=== PATIENT | male | born 1990 | race Caucasian/White ===

== ENCOUNTER 2016-11-10 15:42 | Emergency (ER) | payer OTHER ==
[~2016-11-10] VITALS: Ht 182.9 cm; Wt 78.0 kg
[2016-11-10 15:48] VITALS: BP 130/74; PULSE 82; RESP 18; TEMP 98.5
[2016-11-10] MEDS ORDERED: LEXA20TA PO (15:57)
[2016-11-10] MEDS ORDERED: SERO50TA PO (15:57)
[2016-11-10] MEDS ORDERED: CLON1 PO (15:57)
[2016-11-10] MEDS ORDERED: ELAVIL (15:57)
[2016-11-10] MEDS ORDERED: PRAZ2CAP PO (15:57)
[2016-11-10] MEDS ORDERED: CARAFATE (15:57)
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
[2016-11-10 16:11] VITALS: O2SAT 97
[2016-11-10] MEDS ORDERED: SUCRALFATE 1 GM/10 ML CUP PO ONE (16:15)
[2016-11-10] MEDS ORDERED: PANTOPRAZOLE SODIUM 40 MG VIAL IV PUSH ONE (16:15)
[2016-11-10] MEDS ORDERED: SODIUM CHLORIDE 0.9% FLUSH 5 ML FLUSH IVF PRN (16:15)
[2016-11-10] MEDS ORDERED: LIDOCAINE VISCOUS 2% SOLN 15 ML UDC PO ONE (16:30)
[2016-11-10] MEDS ORDERED: ALUMINUM/MAGNESIUM/SIMETH 30 ML CUP PO ONE (16:30)
[2016-11-10 16:38] LABS: AUTOMATED NEUTROPHIL # 4.2 TH/MM3 (1.8-7.7); BASOPHIL % 0.2 % (0.0-2.0); EOSINOPHIL # 0.1 TH/MM3 (0-0.4); HEMATOCRIT 40.4 % (39.0-51.0); HEMO FLAGS DIFF FINAL; LYMPH % 30.1 % (9.0-44.0); MEAN CELL VOLUME 89.9 FL (80.0-100.0); MEAN CORPUSCULAR HEMOGLOBIN 29.9 PG (27.0-34.0); MEAN CORPUSCULAR HGB CONC 33.3 % (32.0-36.0); MONO % 6.7 % (0.0-8.0); PLATELET COUNT 186 TH/MM3 (150-450); WHITE BLOOD COUNT 6.8 TH/MM3 (4.0-11.0)
[2016-11-10 16:56] VITALS: BP 130/74; PULSE 79; RESP 18; O2SAT 98
[2016-11-10] MEDS ORDERED: ONDANSETRON HCL 4 MG/2 ML VIAL IV PUSH ONE (17:00)
[2016-11-10 17:29] LABS: ALKALINE PHOSPHATASE 81 U/L (45-117); ALT (GPT) 17 U/L (12-78); ANION GAP 7 MEQ/L (5-15); AST (GOT) 20 U/L (15-37); BICARBONATE 25.8 MEQ/L (21.0-32.0); BLOOD UREA NITROGEN 9 MG/DL (7-18); CHLORIDE 110 MEQ/L (98-107); GLOMERULAR FILTRATION RATE 91 ML/MIN (>89); SODIUM (NA) 143 MEQ/L (136-145); TOTAL BILIRUBIN ADULT 0.6 MG/DL (0.2-1.0)
[2016-11-10 17:30] LABS: POTASSIUM 4.5 MEQ/L (3.5-5.1)
[2016-11-10] MEDS ORDERED: PROT40TA PO (17:33)
--- NOTE | 2016-11-10 17:42 | PD ---
Data Data Last Documented VS Vital Signs Date Time Temp Pulse Resp B/P Pulse Ox O2 Delivery O2 Flow Rate FiO2 11/10/16 16:56 79 18 130/74 98 Room Air 11/10/16 15:48 98.5 Orders Complete Blood Count With Diff (11/10/16 16:05) Comprehensive Metabolic Panel (11/10/16 16:05) Lipase (11/10/16 16:05) Ecg Monitoring (11/10/16 16:05) Iv Access Insert/Monitor (11/10/16 16:05) Oximetry (11/10/16 16:05) Sodium Chloride 0.9% Flush (Ns Flush) (11/10/16 16:15) Pantoprazole Inj (Protonix Inj) (11/10/16 16:15) Sucralfate Liq (Carafate Liq) (11/10/16 16:15) Al-Mag Hy-Si 40-40-4 Mg/Ml Liq (Mag-Al P (11/10/16 16:30) Lidocaine 2% Viscous (Xylocaine 2% Visco (11/10/16 16:30) Ondansetron Inj (Zofran Inj) (11/10/16 17:00) Morphine Inj (Morphine Inj) (11/10/16 17:45) Labs Laboratory Tests Test 11/10/16 16:10 White Blood Count 6.8 TH/MM3 Red Blood Count 4.50 MIL/MM3 Hemoglobin 13.4 GM/DL Hematocrit 40.4 % Mean Corpuscular Volume 89.9 FL Mean Corpuscular Hemoglobin 29.9 PG Mean Corpuscular Hemoglobin 33.3 % Concent Red Cell Distribution Width 15.0 % Platelet Count 186 TH/MM3 Mean Platelet Volume 10.3 FL Neutrophils (%) (Auto) 62.0 % Lymphocytes (%) (Auto) 30.1 % Monocytes (%) (Auto) 6.7 % Eosinophils (%) (Auto) 1.0 % Basophils (%) (Auto) 0.2 % Neutrophils # (Auto) 4.2 TH/MM3 Lymphocytes # (Auto) 2.0 TH/MM3 Monocytes # (Auto) 0.5 TH/MM3 Eosinophils # (Auto) 0.1 TH/MM3 Basophils # (Auto) 0.0 TH/MM3 CBC Comment DIFF FINAL Differential Comment Sodium Level 143 MEQ/L Potassium Level 4.5 MEQ/L Chloride Level 110 MEQ/L Carbon Dioxide Level 25.8 MEQ/L Anion Gap 7 MEQ/L Blood Urea Nitrogen 9 MG/DL Creatinine 0.99 MG/DL Estimat Glomerular Filtration 91 ML/MIN Rate Random Glucose 70 MG/DL Calcium Level 8.8 MG/DL Total Bilirubin 0.6 MG/DL Aspartate Amino Transf 20 U/L (AST/SGOT) Alanine Aminotransferase 17 U/L (ALT/SGPT) Alkaline Phosphatase 81 U/L Total Protein 6.8 GM/DL Albumin 4.1 GM/DL Lipase 106 U/L [facility] [place] Supervised Visit with CANDELARIA: Yes Narrative Course The history, exam, and medical decision-making in the associated mid-level provider note were completed with my assistance. I reviewed and agree with the findings presented. I attest that I had a [id number] encounter with the patient on the same day, and personally performed and documented my assessment and findings in the medical record. *My assessment and Findings: 26-year-old man, receiving high-dose NSAIDs for opiate detox symptoms, now with gastritis. He's had some blood in his stool. Refusing rectal exam. Labs are normal. BUNs normal. Recommend PPIs, antiemetics. Outpatient follow-up. Diagnosis Primary Impression: Gastritis Qualified Code: K29.00 - Other acute gastritis, presence of bleeding unspecified Patient Instructions: General Instructions, Gastritis (ED) Departure Forms: Tests/Procedures Additional Instruction: Please return to emergency department if your symptoms return or worsen. Follow up with your primary care provider. Take medications as prescribed. Avoid medications call NSAIDs (ibuprofen, Aleve, Toradol) as they can make your stomach condition worse. Scripts Pantoprazole (Protonix)40 Mg Tab40 Mg PO DAILY #30 TAB Ref 0 Prov:Roberto Savage MD 11/10/16 Disposition: 01 DISCHARGE HOME Condition: Stable Roberto Savage MD Nov 10, 2016 17:42
[2016-11-10] MEDS ORDERED: MORPHINE SULFATE 4 MG/ML INJ IM ONE (17:45)
== END 2016-11-10 18:09 | disposition home or self-care (01) ==
LOC: NEPC 15:42
DX: K29.00 Acute gastritis without bleeding (principal)
CPT/HCPCS: 80053; 83690; 85025; 96372; 96374; 96375; 99284; C9113; J2270; J2405

== ENCOUNTER 2016-12-31 00:06 | Emergency (ER) | payer OTHER ==
[~2016-12-31] VITALS: Ht 182.9 cm; Wt 90.0 kg
[~2016-12-31 00:06] MED LIST: CARAFATE; CLON1 PO; ELAVIL; LEXA20TA PO; PRAZ2CAP PO; PROT40TA PO; SERO50TA PO
[2016-12-31 00:09] VITALS: BP 120/72; PULSE 74; RESP 18; TEMP 98.7; O2SAT 98
[2016-12-31] MEDS ORDERED: SODIUM CHLOR 0.9% 1000 ML INJ 1,000 ML IV SCH (00:16)
[2016-12-31] MEDS ORDERED: PRIL20CA9 PO (00:19)
[2016-12-31] MEDS ORDERED: CARA1TAB6 PO (00:19)
[2016-12-31] MEDS ORDERED: BUPR4MIS SL (00:19)
[2016-12-31] MEDS ORDERED: AMIT1TAB79 PO (00:19)
[2016-12-31 00:21] VITALS: RESP 18; O2SAT 99
[2016-12-31] MEDS ORDERED: SODIUM CHLORIDE 0.9% FLUSH 10 ML FLUSH IV FLUSH PRN (00:30)
[2016-12-31] MEDS ORDERED: KETOROLAC TROMETHAMINE 30 MG/ML (IVP) VIAL IVP ONE (00:30)
[2016-12-31] MEDS ORDERED: ONDANSETRON HCL 4 MG/2 ML VIAL IVP ONE (00:30)
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
[2016-12-31 00:35] LABS: WHITE BLOOD COUNT 7.8 TH/MM3 (4.0-11.0)
[2016-12-31] MEDS ORDERED: DIATRIZOATE MEGLUM/DIATRIZOATE SOD 9 ML CUP ONE (00:35)
[2016-12-31 00:36] LABS: AUTOMATED NEUTROPHIL # 3.8 TH/MM3 (1.8-7.7); BASOPHIL % 0.4 % (0.0-2.0); EOSINOPHIL # 0.3 TH/MM3 (0-0.4); EOSINOPHIL % 3.3 % (0.0-4.0); HEMATOCRIT 42.6 % (39.0-51.0); HEMO FLAGS DIFF FINAL; LYMPH % 40.5 % (9.0-44.0); LYMPHOCYTE # 3.2 TH/MM3 (1.0-4.8); MEAN CELL VOLUME 87.9 FL (80.0-100.0); MEAN CORPUSCULAR HEMOGLOBIN 30.7 PG (27.0-34.0); MONO % 7.8 % (0.0-8.0); PLATELET COUNT 196 TH/MM3 (150-450); RED BLOOD COUNT 4.84 MIL/MM3 (4.50-5.90); RED CELL DISTRIBUTION WIDTH 14.3 % (11.6-17.2)
[2016-12-31] MEDS ORDERED: CLON1 PO (00:41)
[2016-12-31] MEDS ORDERED: CLON.5 PO (00:41)
[2016-12-31 00:55] LABS: APTT (PATIENT) 31.3 SEC (24.3-30.1); PROTHROMBIN TIME - PATIENT 11.4 SEC (9.8-11.6)
[2016-12-31] MEDS ORDERED: LORazepam 2 MG/ML VIAL IV PUSH ONE (01:00)
[2016-12-31 01:01] LABS: ALT (GPT) 43 U/L (12-78); ANION GAP 8 MEQ/L (5-15); AST (GOT) 24 U/L (15-37); BLOOD UREA NITROGEN 7 MG/DL (7-18); CHLORIDE 107 MEQ/L (98-107); GLOMERULAR FILTRATION RATE 103 ML/MIN (>89); POTASSIUM 3.7 MEQ/L (3.5-5.1); SODIUM (NA) 141 MEQ/L (136-145)
[2016-12-31 01:03] LABS: ALKALINE PHOSPHATASE 74 U/L (45-117); TOTAL BILIRUBIN ADULT 0.5 MG/DL (0.2-1.0)
[2016-12-31 02:12] LABS: BLOOD, URINE NEG (NEG); GLUCOSE,URINE NEG (NEG); KETONE, URINE NEG (NEG); NITRITE,URINE NEG (NEG); URINE COLOR LIGHT-YELLOW (YELLW/STRAW)
[2016-12-31 02:16] LABS: COMMENT (UR) CULT NOT INDICATED; CULTURE IF INDICATED CULT NOT INDICATED
[2016-12-31] MEDS ORDERED: IOHEXOL 350 MG/ML 10 ML VIAL (for RAD DIAG) IV ONE (03:13)
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
[2016-12-31 04:12] VITALS: BP 129/67; PULSE 75; RESP 18; O2SAT 96
== END 2016-12-31 05:06 | disposition home or self-care (01) ==
LOC: NEPC 00:06
DX: R10.32 Left lower quadrant pain (principal); F17.210 Nicotine dependence, cigarettes, uncomplicated
CPT/HCPCS: 74177; 80053; 81001; 83605; 83690; 85025; 85610; 85730; 96361; 96374; 96375; 99284; J1885; J2060; J2405; J7030; Q9963; Q9967

== ENCOUNTER 2017-01-08 20:12 | Emergency (ER) | payer OTHER ==
[~2017-01-08] VITALS: Ht 182.9 cm; Wt 88.0 kg
[~2017-01-08 20:12] MED LIST changes: +AMIT1TAB79 PO; +BUPR4MIS SL; +CARA1TAB6 PO; -CARAFATE; +CLON.5 PO; -ELAVIL; +PRIL20CA9 PO; -PROT40TA PO
[2017-01-08 20:13] VITALS: BP 136/85; PULSE 74; RESP 14; TEMP 98.8; O2SAT 99
--- NOTE | 2017-01-08 20:50 | PD ---
Physical Exam Date Seen by Provider: Jan 08, 2017 Time Seen by Provider: 20:49 Narrative 26 yo male here for medical clearance. Here to get a UA to get screened for tox screen to validate his medications for his living arrangements. No other complaints. Vitals sign stable. Patient awaiting bed placement. Data Data Last Documented VS Vital Signs Date Time Temp Pulse Resp B/P Pulse Ox O2 Delivery O2 Flow Rate FiO2 01/08/17 20:13 98.8 74 14 136/85 99 Room Air [facility] Medical Record Reviewed: Yes Supervised Visit with CANDELARIA: Ricky Nelson Jan 08, 2017 20:50
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
== END 2017-01-08 21:19 | disposition left against medical advice (07) ==
LOC: NEPK 20:12
DX: Z04.8 Encounter for examination and observation for other specified reasons (principal); Z92.29 Personal history of other drug therapy; R10.9 Unspecified abdominal pain; F17.210 Nicotine dependence, cigarettes, uncomplicated
CPT/HCPCS: 99281

== ENCOUNTER 2017-01-31 22:41 | Emergency (ER) | payer OTHER ==
[2017-01-31 22:45] VITALS: BP 142/87; PULSE 87; RESP 16; TEMP 99.4; O2SAT 98
[2017-02-01] MEDS ORDERED: BUPR4MIS SL (01:23)
[2017-02-01] MEDS ORDERED: SERO100T PO (01:23)
[2017-02-01] MEDS ORDERED: REME30TA PO (01:23)
[2017-02-01] MEDS ORDERED: SUBO8MIS SL (01:23)
[2017-02-01] MEDS ORDERED: ANUS25SU RECTAL (01:30)
[2017-02-01 01:33] VITALS: BP 117/56; PULSE 83; RESP 16; O2SAT 95
[2017-02-01] MEDS ORDERED: ONDANSETRON HCL 4 MG/2 ML VIAL IV PUSH ONE (01:45)
[2017-02-01] MEDS ORDERED: SODIUM CHLOR 0.9% 1000 ML INJ 1,000 ML IV ONE (01:45)
[2017-02-01 01:50] LABS: AUTOMATED NEUTROPHIL # 3.9 TH/MM3 (1.8-7.7); BASOPHIL % 0.3 % (0.0-2.0); EOSINOPHIL # 0.4 TH/MM3 (0-0.4); EOSINOPHIL % 4.7 % (0.0-4.0); HEMATOCRIT 42.5 % (39.0-51.0); HEMO FLAGS DIFF FINAL; LYMPH % 36.8 % (9.0-44.0); MEAN CELL VOLUME 89.4 FL (80.0-100.0); MEAN CORPUSCULAR HEMOGLOBIN 30.2 PG (27.0-34.0); MEAN CORPUSCULAR HGB CONC 33.7 % (32.0-36.0); NEUT % 48.2 % (16.0-70.0); PLATELET COUNT 183 TH/MM3 (150-450); RED BLOOD COUNT 4.75 MIL/MM3 (4.50-5.90); RED CELL DISTRIBUTION WIDTH 13.3 % (11.6-17.2); WHITE BLOOD COUNT 8.1 TH/MM3 (4.0-11.0)
[2017-02-01 01:58] LABS: ALKALINE PHOSPHATASE 73 U/L (45-117); TOTAL BILIRUBIN ADULT 0.5 MG/DL (0.2-1.0)
[2017-02-01] MEDS ORDERED: PANTOPRAZOLE SODIUM 40 MG VIAL IV PUSH ONE (02:00)
[2017-02-01 02:02] LABS: ALT (GPT) 59 U/L (12-78); ANION GAP 9 MEQ/L (5-15); AST (GOT) 48 U/L (15-37); BICARBONATE 25.5 MEQ/L (21.0-32.0); BLOOD UREA NITROGEN 7 MG/DL (7-18); CHLORIDE 108 MEQ/L (98-107); GLOMERULAR FILTRATION RATE 105 ML/MIN (>89); POTASSIUM 4.1 MEQ/L (3.5-5.1); SODIUM (NA) 142 MEQ/L (136-145)
[2017-02-01] MEDS ORDERED: PROT40TA PO (02:51)
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
== END 2017-02-01 03:01 | disposition home or self-care (01) ==
LOC: NEPC 22:41
DX: R10.9 Unspecified abdominal pain (principal); K62.5 Hemorrhage of anus and rectum; R11.2 Nausea with vomiting, unspecified; F17.200 Nicotine dependence, unspecified, uncomplicated; Z86.59 Personal history of other mental and behavioral disorders; Z87.19 Personal history of other diseases of the digestive system
CPT/HCPCS: 80053; 83690; 85025; 96361; 96374; 96375; 99284; C9113; J2405; J7030

== ENCOUNTER 2017-02-19 21:36 | Emergency (ER) | payer OTHER ==
[~2017-02-19] VITALS: Ht 182.9 cm; Wt 108.7 kg
[~2017-02-19 21:36] MED LIST changes: -AMIT1TAB79 PO; +ANUS25SU RECTAL; -CARA1TAB6 PO; -CLON.5 PO; +PROT40TA PO; +REME30TA PO; +SERO100T PO; +SUBO8MIS SL
[2017-02-19 21:41] VITALS: BP 128/81; PULSE 86; RESP 18; TEMP 98.1; O2SAT 97
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
[2017-02-19] MEDS ORDERED: SODIUM CHLOR 0.9% 1000 ML INJ 1,000 ML IV ONE (22:15)
[2017-02-19] MEDS ORDERED: ONDANSETRON HCL 4 MG/2 ML VIAL IVP ONE (22:15)
[2017-02-19] MEDS ORDERED: ONDANSETRON HCL 4 MG/2 ML VIAL IV PUSH ONE (22:15)
[2017-02-19] MEDS ORDERED: SODIUM CHLORIDE 0.9% FLUSH 10 ML FLUSH IV FLUSH PRN (22:15)
[2017-02-19 22:38] LABS: AUTOMATED NEUTROPHIL # 2.4 TH/MM3 (1.8-7.7); BASOPHIL % 0.3 % (0.0-2.0); EOSINOPHIL # 0.3 TH/MM3 (0-0.4); EOSINOPHIL % 5.5 % (0.0-4.0); HEMO FLAGS DIFF FINAL; LYMPH % 43.5 % (9.0-44.0); LYMPHOCYTE # 2.5 TH/MM3 (1.0-4.8); MEAN CELL VOLUME 88.7 FL (80.0-100.0); MEAN CORPUSCULAR HEMOGLOBIN 30.6 PG (27.0-34.0); MEAN CORPUSCULAR HGB CONC 34.5 % (32.0-36.0); MONO % 8.8 % (0.0-8.0); NEUT % 41.9 % (16.0-70.0); PLATELET COUNT 213 TH/MM3 (150-450); RED BLOOD COUNT 4.52 MIL/MM3 (4.50-5.90); RED CELL DISTRIBUTION WIDTH 12.2 % (11.6-17.2); WHITE BLOOD COUNT 5.7 TH/MM3 (4.0-11.0)
[2017-02-19 22:39] LABS: BLOOD, URINE NEG (NEG); GLUCOSE,URINE NEG (NEG); KETONE, URINE NEG (NEG); NITRITE,URINE NEG (NEG)
[2017-02-19 22:46] LABS: CHLORIDE 107 MEQ/L (98-107); POTASSIUM 3.6 MEQ/L (3.5-5.1); SODIUM (NA) 142 MEQ/L (136-145)
[2017-02-19 22:47] LABS: COMMENT (UR) CULT NOT INDICATED; CULTURE IF INDICATED CULT NOT INDICATED; RBC, URINE 0-2 /hpf (0-3); SQUAMOUS EPITHELIAL CELL URINE 0-5 /hpf (0-5); URINE COLOR YELLOW (YELLW/STRAW); WBC, URINE 0-2 /hpf (0-5)
[2017-02-19 22:50] LABS: ANION GAP 9 MEQ/L (5-15); BICARBONATE 26.3 MEQ/L (21.0-32.0); BLOOD UREA NITROGEN 8 MG/DL (7-18)
[2017-02-19 22:53] LABS: ALT (GPT) 71 U/L (12-78); AST (GOT) 40 U/L (15-37); GLOMERULAR FILTRATION RATE 95 ML/MIN (>89)
[2017-02-19 22:55] LABS: APTT (PATIENT) 27.8 SEC (24.3-30.1); INTERNATIONAL NORMALIZED RATIO 0.9 RATIO; PROTHROMBIN TIME - PATIENT 10.1 SEC (9.8-11.6); TOTAL BILIRUBIN ADULT 0.4 MG/DL (0.2-1.0)
[2017-02-19 22:56] LABS: ALKALINE PHOSPHATASE 65 U/L (45-117)
[2017-02-19] MEDS ORDERED: MORPHINE SULFATE 4 MG/ML INJ IV PUSH ONE (23:00)
--- NOTE | 2017-02-20 00:43 | RADHPO ---
EXAM DATE/TIME: 02/19/2017 23:46 [facility] COMPARISON: No previous studies available for comparison. INDICATIONS : Right upper quadrant pain. MEDICAL HISTORY : Renal calculi. Gastritis. PTSD. Depression. Anxiety. Substance use. SURGICAL HISTORY : Appendectomy. Colon repair. Right wrist surgery. Left arm incision and drainage from cellulitis. ENCOUNTER: Initial ACUITY: 1 day PAIN SCORE: 7/10 LOCATION: Right upper quadrant MEASUREMENTS: LIVER: 18.6 cm length COMMON DUCT: 4 mm RIGHT KIDNEY: 11.2 x 4.8 x 4.4 cm FINDINGS: LIVER: Normal echotexture without focal lesion or ductal dilatation. The liver is mildly prominent. COMMON DUCT: No intraluminal mass or stone visualized. GALLBLADDER: Contains no stones, demonstrates no wall thickening or pericholecystic fluid. PANCREAS: The visualized portions are within normal limits. RIGHT KIDNEY: No evidence of hydronephrosis, stone, or mass. CONCLUSION: 1. Mildly prominent liver with no focal lesion. 2. Unremarkable gallbladder with no evidence of cholelithiasis. Joni Pena MD on February 20, 2017 at 0:40 Board Certified Radiologist. This report was verified electronically.
--- NOTE | 2017-02-20 00:45 | PD ---
Data Data Last Documented VS Vital Signs Date Time Temp Pulse Resp B/P Pulse Ox O2 Delivery O2 Flow Rate FiO2 02/20/17 01:31 82 16 147/77 99 02/19/17 21:41 98.1 Orders Complete Blood Count With Diff (02/19/17 22:02) Comprehensive Metabolic Panel (02/19/17 22:02) Lipase (02/19/17 22:02) Prothrombin Time / Inr (Pt) (02/19/17 22:02) Act Partial Throm Time (Ptt) (02/19/17 22:02) Urinalysis - C+S If Indicated (02/19/17 22:02) Us Abdomen Gallbladder (02/19/17 ) Iv Access Insert/Monitor (02/19/17 22:02) Ecg Monitoring (02/19/17 22:02) Oximetry (02/19/17 22:02) Ondansetron Inj (Zofran Inj) (02/19/17 22:15) Sodium Chloride 0.9% Flush (Ns Flush) (02/19/17 22:15) Ondansetron Inj (Zofran Inj) (02/19/17 22:15) Sodium Chlor 0.9% 1000 Ml Inj (Ns 1000 M (02/19/17 22:15) Morphine Inj (Morphine Inj) (02/19/17 23:00) Labs Laboratory Tests Test 02/19/17 02/19/17 22:25 22:30 Urine Color YELLOW Urine Turbidity CLEAR Urine pH 7.0 Urine Specific [place] 1.016 Urine Protein NEG mg/dL Urine Glucose (UA) NEG mg/dL Urine Ketones NEG mg/dL Urine Occult Blood NEG Urine Nitrite NEG Urine Bilirubin NEG Urine Leukocyte Esterase NEG Urine RBC 0-2 /hpf Urine WBC 0-2 /hpf Urine Squamous Epithelial 0-5 /hpf Cells Urine Bacteria NONE /hpf Microscopic Urinalysis Comment CULT NOT INDICATED White Blood Count 5.7 TH/MM3 Red Blood Count 4.52 MIL/MM3 Hemoglobin 13.8 GM/DL Hematocrit 40.0 % Mean Corpuscular Volume 88.7 FL Mean Corpuscular Hemoglobin 30.6 PG Mean Corpuscular Hemoglobin 34.5 % Concent Red Cell Distribution Width 12.2 % Platelet Count 213 TH/MM3 Mean Platelet Volume 8.0 FL Neutrophils (%) (Auto) 41.9 % Lymphocytes (%) (Auto) 43.5 % Monocytes (%) (Auto) 8.8 % Eosinophils (%) (Auto) 5.5 % Basophils (%) (Auto) 0.3 % Neutrophils # (Auto) 2.4 TH/MM3 Lymphocytes # (Auto) 2.5 TH/MM3 Monocytes # (Auto) 0.5 TH/MM3 Eosinophils # (Auto) 0.3 TH/MM3 Basophils # (Auto) 0.0 TH/MM3 CBC Comment DIFF FINAL Differential Comment Prothrombin Time 10.1 SEC Prothromb Time International 0.9 RATIO Ratio Activated Partial 27.8 SEC Thromboplast Time Sodium Level 142 MEQ/L Potassium Level 3.6 MEQ/L Chloride Level 107 MEQ/L Carbon Dioxide Level 26.3 MEQ/L Anion Gap 9 MEQ/L Blood Urea Nitrogen 8 MG/DL Creatinine 0.95 MG/DL Estimat Glomerular Filtration 95 ML/MIN Rate Random Glucose 109 MG/DL Calcium Level 8.0 MG/DL Total Bilirubin 0.4 MG/DL Aspartate Amino Transf 40 U/L (AST/SGOT) Alanine Aminotransferase 71 U/L (ALT/SGPT) Alkaline Phosphatase 65 U/L Total Protein 7.1 GM/DL Albumin 3.7 GM/DL Lipase 88 U/L [facility] Supervised Visit with CANDELARIA: No Narrative Course Patient care assumed from Dr. Ty Ortiz At midnight. On my reassessment the patient sleeping soundly, he awakes to walk to the bathroom and back in no apparent distress. States he still is having some abdominal discomfort. His abdominal exam is benign. I reviewed his labs and there unimpressive. An ultrasound was obtained because the new symptoms right upper quadrant abdominal pain. There is no convincing evidence that the patient is having acute cholecystitis. Last 24 hours Impressions Gall Bladder Ultrasound 02/19/17 0000 Signed Impressions: Service Date/Time: Sunday, February 19, 2017 23:46 - CONCLUSION: 1. Mildly prominent liver with no focal lesion. 2. Unremarkable gallbladder with no evidence of cholelithiasis. Joni Pena MD Discussed the results with the patient recommended that he follow-up with his rda. He was given a referral to Dr. Black if he couldn't get into see his rda. He is stable for discharge at this time for outpatient workup. Diagnosis Primary Impression: Abdominal pain Qualified Code: R10.11 - Right upper quadrant abdominal pain Referrals: Graeme Valderrama MD Disposition: 01 DISCHARGE HOME Condition: Stable Italo Andrade MD Feb 20, 2017 00:45
[2017-02-20 01:31] VITALS: BP 147/77
== END 2017-02-20 01:33 | disposition home or self-care (01) ==
LOC: PHED 21:36
DX: R10.11 Right upper quadrant pain (principal); F43.10 Post-traumatic stress disorder, unspecified; F32.9 Major depressive disorder, single episode, unspecified; F17.200 Nicotine dependence, unspecified, uncomplicated
CPT/HCPCS: 76705; 80053; 81001; 83690; 85025; 85610; 85730; 96361; 96374; 96375; 99285; J2270; J2405; J7030

== ENCOUNTER 2017-03-26 14:48 | Emergency (ER) | payer OTHER ==
[~2017-03-26] VITALS: Ht 182.9 cm; Wt 113.3 kg
[2017-03-26 14:56] VITALS: BP 147/97; PULSE 87; RESP 16; TEMP 98.9; O2SAT 97
--- NOTE | 2017-03-26 15:04 | PD ---
HPI . right forearm infection Chief Complaint: Skin Problem Time Seen by Provider: 15:04 Travel History International Travel<30 days: No Contact w/Intl Traveler<30days: No Traveled to known affect area: No History of Present Illness HPI 26-year-old male here with complaint of right forearm infection. Patient tells me that he got a tattoo approximately 1 week ago and thinks he is developing a case of MRSA. He admits to slight draining from a small pimple sized lesion. He is here requesting treatment for MRSA as someone he was in contact with had MRSA. He denies any fever or chills. PFSH Past Medical History Anxiety: Yes Depression: Yes Gastrointestinal Disorders: Yes (GASTRITIS) Psychiatric: Yes (PTSD) Immunizations Current: Yes Past Surgical History Abdominal Surgery: Yes (COLON REPAIR ) Appendectomy: Yes Other Surgery: Yes (R. WRIST, L. ARM CELLULITIS I&D) Social History Alcohol Use: No Tobacco Use: Yes (1 PPD ) Substance Use: No (HX OPIATES, HEROIN ) Allergies-Medications (Allergen,Severity, Reaction): Coded Allergies: Penicillin (Verified Allergy, Severe, Hives, 03/26/17) Reported Meds & Prescriptions Reported Meds & Active Scripts Active Bactrim DS (Sulfamethoxazole-Trimethoprim) 800-160 Mg Tab 1 Tab PO BID Protonix (Pantoprazole Sodium) 40 Mg Tab 40 Mg PO DAILY 10 Days Reported Lexapro (Escitalopram Oxalate) 10 Mg Tab 10 Mg PO DAILY Seroquel (Quetiapine Fumarate) 200 Mg Tab 200 Mg PO HS Remeron (Mirtazapine) 30 Mg Tab 30 Mg PO HS Suboxone Sublingual Film (Buprenorphine-Naloxone Sublingual Film) 8-2 Mg Film 1 Film SL DAILY Unique ID number required: Klonopin (Clonazepam) 1 Mg Tab 1 Mg PO TID Prazosin (Prazosin HCl) 2 Mg Cap 3 Mg PO HS Review of Systems General / Constitutional: No: Fever Eyes: No: Visual changes HENT: No: Headaches Cardiovascular: No: Chest Pain or Discomfort Respiratory: No: Shortness of Breath Gastrointestinal: No: Abdominal Pain Genitourinary: No: Dysuria Musculoskeletal: No: Pain Skin: Positive Other (right forearm skin infection ), No Rash Neurologic: No: Weakness Psychiatric: No: Depression Endocrine: No: Polydipsia Hematologic/Lymphatic: No: Easy Bruising Physical Exam Narrative GENERAL: AAO x 3, no acute distress, Well-nourished, well-developed patient. SKIN: Warm and dry. No visible rashes or bruising. Right forearm dorsal aspect with a small 5 mm induration with slight purulent drainage mild erythema no significant induration and no fluctuance HEAD: Normocephalic and atraumatic. EYES: No scleral icterus. No injection or drainage. ENT: No nasal drainage noted. Mucous membranes pink. Airway patent. NECK: Supple, trachea midline. No JVD. CARDIOVASCULAR: Regular rate and rhythm without murmurs, gallops, or rubs. RESPIRATORY: Breath sounds equal bilaterally. No accessory muscle use. No rhonchi or rales. GASTROINTESTINAL: Visual inspection normal EXTREMITIES: No cyanosis or edema. BACK: No obvious deformity. NEURO: CN II-12 intact, PSYCH: AAO x 3, normal affect. Data Data Last Documented VS Vital Signs Date Time Temp Pulse Resp B/P Pulse Ox O2 Delivery O2 Flow Rate FiO2 03/26/17 14:56 98.9 87 16 147/97 97 MDM Medical Decision Making Medical Screen Exam Complete: Yes Emergency Medical Condition: Yes Medical Record Reviewed: Yes Differential Diagnosis Right forearm cellulitis, early abscess, less likely sepsis Narrative Course 26-year-old male here with complaint of a right forearm cellulitis. Examination does reveal a slight area of cellulitis. There is no definitive abscess. I will go ahead and treat him with a course of Bactrim to cover MRSA. I've discussed this with him Patient verbalized understanding of instructions, questions were answered, and thanked me for their care. I advised them if their condition worsens, please return to the nearest emergency room for further care. Diagnosis Primary Impression: Right forearm cellulitis Patient Instructions: Acute Wound Care (ED), Cellulitis (ED), General Instructions Additional Instructions: [place] for worsening signs of infection which include fever, increased redness , increased warmth, purulent drainage, increased swelling or streaking. If any of these develop, please go to the nearest emergency room. Please return to emergency department if your symptoms return or worsen. Follow up with your primary care provider. Take medications as prescribed. Med/Other Pt SpecificInfo: Prescription(s) given Scripts Sulfamethoxazole-Trimethoprim (Bactrim DS)800-160 Mg Tab1 Tab PO BID #20 TAB Prov:Kelly Taveras DO 03/26/17 Disposition: 01 DISCHARGE HOME Condition: Stable Isa Emerson Mar 26, 2017 15:04
[2017-03-26] MEDS ORDERED: LEXA10TA PO (15:08)
[2017-03-26] MEDS ORDERED: REME30TA PO (15:08)
[2017-03-26] MEDS ORDERED: SERO200T PO (15:08)
[2017-03-26] MEDS ORDERED: BACT800T5 PO (15:09)
== END 2017-03-26 17:58 | disposition home or self-care (01) ==
LOC: PHEFT 14:48
DX: L03.113 Cellulitis of right upper limb (principal); F43.10 Post-traumatic stress disorder, unspecified; F17.210 Nicotine dependence, cigarettes, uncomplicated
CPT/HCPCS: 99283

== ENCOUNTER 2017-06-18 00:38 | Emergency (ER) | payer OTHER ==
[~2017-06-18] VITALS: Ht 182.9 cm; Wt 110.0 kg
[~2017-06-18 00:38] MED LIST changes: -ANUS25SU RECTAL; +BACT800T5 PO; -BUPR4MIS SL; +LEXA10TA PO; -LEXA20TA PO; -PRIL20CA9 PO; -SERO100T PO; +SERO200T PO; -SERO50TA PO
[2017-06-18 00:50] VITALS: BP 119/80; PULSE 89; RESP 16; TEMP 99; O2SAT 96
--- NOTE | 2017-06-18 00:55 | PD ---
HPI Chief Complaint: Fall Time Seen by Provider: 00:41 Travel History International Travel<30 days: No Contact w/Intl Traveler<30days: No Traveled to known affect area: No History of Present Illness HPI The patient is a 26-year-old male who presents to the emergency department for headache, neck pain, and left elbow pain after a fall. The patient states she was standing on his sink in the bathroom, pain in the wall, when he slipped and fell. The patient tried to stop his fall by grabbing onto the towel rack, however, swung backwards and subsequent struck the ground and wall. The patient denies any loss of consciousness, however, complained of a headache with blurry vision. The patient also complains of posterior neck pain which is nonradiating, aching, and located in the posterior aspect of the neck. The patient also complains of left elbow pain with limited ability to flex and extend the left elbow secondary to pain and swelling. The patient is right- hand dominant. Patient denies chest pain, shortness breath, nausea, vomiting, or abdominal pain. Symptoms are moderate, exacerbated after falling, and there are no current alleviating factors. Patient does have a history of drug abuse, is currently on Suboxone, requests no narcotics. PFSH Past Medical History Anxiety: Yes Depression: Yes Diminished Hearing: No Gastrointestinal Disorders: Yes (GASTRITIS) Psychiatric: Yes (PTSD) Immunizations Current: Yes Past Surgical History Abdominal Surgery: Yes (COLON REPAIR ) Appendectomy: Yes Other Surgery: Yes (R. WRIST, L. ARM CELLULITIS I&D) Social History Alcohol Use: No Tobacco Use: Yes (1 PPD ) Substance Use: No (HX OPIATES, HEROIN ) Allergies-Medications (Allergen,Severity, Reaction): Coded Allergies: penicillin G (Unverified Allergy, Severe, Hives, 06/18/17) Reported Meds & Prescriptions Reported Meds & Active Scripts Active Reported Topiramate ER (Topiramate) 50 Mg Cap 50 Mg PO DAILY Seroquel (Quetiapine Fumarate) 25 Mg Tab 25 Mg PO HS Clonidine (Clonidine HCl) 0.1 Mg Tab 0.1 Mg PO DIRECTED PRN Lexapro (Escitalopram Oxalate) 10 Mg Tab 20 Mg PO DAILY Suboxone Sublingual Film (Buprenorphine-Naloxone Sublingual Film) 8-2 Mg Film 1 Film SL BID Unique ID number required: Klonopin (Clonazepam) 1 Mg Tab 1 Mg PO TID Prazosin (Prazosin HCl) 2 Mg Cap 3 Mg PO HS Review of Systems Except as stated in HPI: all other systems reviewed are Neg HENT: Positive: Headaches, Neck Pain Cardiovascular: No: Chest Pain or Discomfort Respiratory: No: Shortness of Breath Gastrointestinal: No: Nausea, Vomiting, Abdominal Pain Musculoskeletal: Positive: Limited ROM, Pain Neurologic: No: Paresthesia, Sensory Disturbance Physical Exam Narrative GENERAL: Awake, alert, pleasant 26-year-old male who appears his stated age and is in no acute respiratory distress. SKIN: Focused skin assessment warm/dry. HEAD: Atraumatic. Normocephalic. No obvious cephalic hematomas. EYES: Pupils equal and round. Pupils are 4 mm bilateral and reactive. EOMs are intact. Patient is able to see fingers at a distance of 2 feet without difficulty. ENT: No nasal bleeding or discharge. Mucous membranes pink and moist. Tongue ring noted. NECK: Trachea midline. No JVD. Cervical collar in place. Tenderness of the posterior cervical vertebrae. CARDIOVASCULAR: Regular rate and rhythm. No murmur appreciated. RESPIRATORY: No accessory muscle use. Clear to auscultation. Breath sounds equal bilaterally. GASTROINTESTINAL: Abdomen soft, non-tender, nondistended. No rebound tenderness. Back: No tenderness over the thoracic or lumbar vertebrae. MUSCULOSKELETAL: Swelling noted to the left elbow. Patient has a superficial abrasion of the lateral aspect left elbow. Patient has severe limited ability to flex and extend the left elbow as well as supinate and pronate. He is able to abduct the left shoulder to 45. He is able flex and extend the left wrist. Chin to camp muscles are intact. Positive left radial pulse. NEUROLOGICAL: Awake and alert. No obvious cranial nerve deficits. Motor grossly within normal limits. Normal speech. Sensation is intact with the medial, radial, and ulnar distribution of the left hand. Nonfocal. Oriented 4. Follows commands without difficulty. PSYCHIATRIC: Appropriate mood and affect; insight and judgment normal. Data Data Last Documented VS Vital Signs Date Time Temp Pulse Resp B/P (MAP) Pulse Ox O2 Delivery O2 Flow Rate FiO2 06/18/17 00:50 99.0 89 16 119/80 (93) [address] Cerv Spine W/O Contrast (06/18/17 ) Ct Brain W/O Iv Contrast(Rout) (06/18/17 ) Elbow, Limited (Ap&Lat) (06/18/17 ) Ketorolac Inj (Toradol Inj) (06/18/17 01:45) Support Splint (06/18/17 01:54) MDM Medical Decision Making Medical Screen Exam Complete: Yes Emergency Medical Condition: Yes Medical Record Reviewed: Yes Interpretation(s) CT of the cervical spine reveals a normal examination CT of the head reveals normal examination X-ray the left elbow reveals unremarkable Limited examination of the left elbow Differential Diagnosis Differential diagnosis includes mechanical fall, closed head injury, intracranial hemorrhage, cervical fracture, elbow fracture, radial head fracture , supracondylar fracture, distal humeral fracture, hematoma, contusion, sprain, strain. Narrative Course CT of the brain and cervical spine were obtained. X-ray of the left elbow was obtained. CT of the brain and cervical spine were unremarkable. X-ray left elbow is unremarkable. The patient was administered Toradol 60 mg IM for pain. The patient was placed in a sling for, for. He is advised to have range of motion exercises daily, work excuse for 2 days, apply ice to the affected area, and ibuprofen as needed for pain. The patient will be provided a copy of his CT results and lab results at discharge. Diagnosis Primary Impression: Left elbow pain Additional Impression: Neck pain Patient Instructions: General Instructions Additional Instructions: Medications as directed. Please provide the patient a copy of CT results and lab results at discharge. Sling as needed, range of motion exercises daily. Follow-up with your primary physician and/or orthopedics if symptoms persist. Work excuse for 2 days. Med/Other Pt SpecificInfo: Prescription(s) given Scripts Ibuprofen (Ibuprofen) 600 Mg Tab 600 MG PO Q6H Y for Pain/Inflammation, #20 TAB 0 Refills Prov: Igor Tabares MD 06/18/17 Disposition: 01 DISCHARGE HOME Condition: Stable Igor Tabraes MD Jun 18, 2017 00:55
[2017-06-18] MEDS ORDERED: TOPI1CAP18 PO (00:58)
[2017-06-18] MEDS ORDERED: SERO25TA PO (00:58)
[2017-06-18] MEDS ORDERED: CLON0.1T PO (00:58)
--- NOTE | 2017-06-18 01:32 | RADRPT ---
EXAM DATE/TIME: 06/18/2017 01:08 [facility] COMPARISON: No previous studies available for comparison. INDICATIONS : Patient complains of left posterior elbow pain status post fall. MEDICAL HISTORY : None. SURGICAL HISTORY : None. ENCOUNTER: Initial ACUITY: 1 day PAIN SCORE: 8/10 LOCATION: Left Elbow FINDINGS: Two view examination of the left elbow demonstrates no soft tissue swelling, joint effusion, fracture or dislocation. Bony mineralization is normal. CONCLUSION: Unremarkable limited examination of the left elbow. José Miguel Ojeda Jr., MD on June 18, 2017 at 1:30 Board Certified Radiologist. This report was verified electronically.
--- NOTE | 2017-06-18 01:33 | RADRPT ---
EXAM DATE/TIME: 06/18/2017 01:15 [facility] COMPARISON: No previous studies available for comparison. INDICATIONS : Trauma, fall off counter. RADIATION DOSE: 35.95 CTDIvol (mGy) MEDICAL HISTORY : None SURGICAL HISTORY : None. ENCOUNTER: Initial ACUITY: 1 day PAIN SCALE: 8/10 LOCATION: cranial TECHNIQUE: Multiple contiguous axial images were obtained of the head. Using automated exposure control and adj ustment of the mA and/or kV according to patient size, radiation dose was kept as low as reasonably a chievable to obtain optimal diagnostic quality images. DICOM format image data is available electro nically for review and comparison. FINDINGS: CEREBRUM: The ventricles are normal for age. No evidence of midline shift, mass lesion, hemorrhage or acute in farction. No extra-axial fluid collections are seen. POSTERIOR FOSSA: The cerebellum and brainstem are intact. The 4th ventricle is midline. The cerebellopontine angle i s unremarkable. EXTRACRANIAL: The visualized portion of the orbits is intact. SKULL: The calvaria is intact. No evidence of skull fracture. CONCLUSION: Normal examination. José Miguel Ojeda Jr., MD on June 18, 2017 at 1:30 Board Certified Radiologist. This report was verified electronically.
--- NOTE | 2017-06-18 01:35 | RADRPT ---
EXAM DATE/TIME: 06/18/2017 01:15 [facility] COMPARISON: No previous studies available for comparison. INDICATIONS : Trauma, fall of counter. RADIATION DOSE: 35.95 CTDIvol (mGy) MEDICAL HISTORY : None SURGICAL HISTORY : None. ENCOUNTER: Initial ACUITY: 1 day PAIN SCALE: 8/10 LOCATION: neck TECHNIQUE: Volumetric scanning of the cervical spine was performed. Multiplanar reconstructions in the sagittal, coronal and oblique axial planes were performed. Using automated exposure control and adjustment o f the mA and/or kV according to patient size, radiation dose was kept as low as reasonably achievable to obtain optimal diagnostic quality images. DICOM format image data is available electronically f or review and comparison. FINDINGS: VERTEBRAE: Normal vertebral body height. ALIGNMENT: No evidence of subluxation. C2-C3: The bony spinal canal is normal in size. No evidence of disc bulge or herniation. The neural forami na are bilaterally patent. C3-C4: The bony spinal canal is normal in size. No evidence of disc bulge or herniation. The neural forami na are bilaterally patent. C4-C5: The bony spinal canal is normal in size. No evidence of disc bulge or herniation. The neural forami na are bilaterally patent. C5-C6: The bony spinal canal is normal in size. No evidence of disc bulge or herniation. The neural forami na are bilaterally patent. C6-C7: The bony spinal canal is normal in size. No evidence of disc bulge or herniation. The neural forami na are bilaterally patent. C7-T1: The bony spinal canal is normal in size. No evidence of disc bulge or herniation. The neural forami na are bilaterally patent. CONCLUSION: Normal examination. José Miguel Ojeda Jr., MD on June 18, 2017 at 1:32 Board Certified Radiologist. This report was verified electronically.
[2017-06-18] MEDS ORDERED: KETOROLAC TROMETHAMINE 60 MG/2 ML (IM) VIAL IM ONE (01:45)
[2017-06-18] MEDS ORDERED: IBUP-232 PO (02:03)
== END 2017-06-18 02:33 | disposition home or self-care (01) ==
LOC: NEPE 00:38
DX: M25.522 Pain in left elbow (principal); M54.2 Cervicalgia; W08.XXXA Fall from other furniture, initial encounter; Y93.E9 Activity, other interior property and clothing maintenance; Y92.002 Bathroom of unspecified non-institutional (private) residence as the place of occurrence of the external cause; Z72.0 Tobacco use
CPT/HCPCS: 70450; 72125; 73070; 96372; 99285; J1885